=== PATIENT | male | born 1975 | race African-American/Black ===

== ENCOUNTER 2017-04-30 10:15 | Emergency (ER) | payer OTHER ==
[~2017-04-30] VITALS: Ht 175.3 cm; Wt 126.0 kg
[~2017-04-30 10:15] MED LIST: ALPR0.5T99 PO; HYDR12.56 PO; LISI2.5T3 PO; ZOLO25TA PO
[2017-04-30 10:18] VITALS: BP 191/109; PULSE 82; RESP 16; TEMP 98.8; O2SAT 98
[2017-04-30] MEDS ORDERED: HYDR12.57 PO (10:30)
[2017-04-30] MEDS ORDERED: LISI-519 PO (10:30)
[2017-04-30] MEDS ORDERED: ALPR.5 PO (10:30)
--- NOTE | 2017-04-30 10:39 | PD ---
HPI Chief Complaint: GI Complaint Time Seen by Provider: 10:38 Travel History International Travel<30 days: No Contact w/Intl Traveler<30days: No Traveled to known affect area: No History of Present Illness HPI 41 YO M with PMH of HTN presents to the ED for evaluation of 2 day history of left abdominal pain. Onset after moving some boxes. Worsened by deep breaths and certain movements. Patient denies fever, chills, SOB, decreased appetite, nausea, vomiting, changes in bowel habits, melena, hematochezia, dysuria. Endorses chronic back pain, no worse today. Denies history of abdominal surgery. No treatment attempted at home. PFSH Past Medical History Anxiety: Yes Diminished Hearing: No Hypertension: Yes Past Surgical History Surgical History: No Previous Surgery Social History Alcohol Use: Yes (WEEKLY) Tobacco Use: No Substance Use: No Allergies-Medications (Allergen,Severity, Reaction): Coded Allergies: No Known Allergies (Verified , 05/08/15) Reported Meds & Prescriptions Reported Meds & Active Scripts Active Reported Hydrochlorothiazide 12.5 Mg Cap 12.5 Mg PO DAILY Lisinopril 5 Mg Tab 5 Mg PO BID Xanax (Alprazolam) 0.5 Mg Tab 0.5 Mg PO Review of Systems Except as stated in HPI: all other systems reviewed are Neg Physical Exam Narrative GENERAL: Well-nourished, well-developed black male in no acute distress. SKIN: Focused skin assessment warm/dry. Point tenderness over the left lower lateral ribs. No ecchymosis or edema noted. HEAD: Normocephalic. EYES: No scleral icterus. No injection or drainage. NECK: Supple, trachea midline. No JVD or lymphadenopathy. CARDIOVASCULAR: Regular rate and rhythm without murmurs, gallops, or rubs. RESPIRATORY: Breath sounds clear and equal bilaterally. No accessory muscle use. GASTROINTESTINAL: Abdomen soft, non-tender, nondistended. Active bowel sounds. No palpable masses. MUSCULOSKELETAL: No cyanosis, or edema. Ambulatory, moves extremities spontaneously. BACK: Nontender without obvious deformity. No CVA tenderness. Data Data Last Documented VS Vital Signs Date Time Temp Pulse Resp B/P Pulse Ox O2 Delivery O2 Flow Rate FiO2 04/30/17 10:18 98.8 82 16 191/109 98 Orders Complete Blood Count With Diff (04/30/17 10:44) Comprehensive Metabolic Panel (04/30/17 10:44) Ua Includes Microscopic (04/30/17 10:44) Iv Access Insert/Monitor (04/30/17 10:44) Sodium Chloride 0.9% Flush (Ns Flush) (04/30/17 10:45) Chest, Single Ap (04/30/17 10:44) Ketorolac Inj (Toradol Inj) (04/30/17 10:45) Potassium Chloride (Kcl) (04/30/17 12:15) Labs Laboratory Tests Test 04/30/17 04/30/17 11:00 11:05 Urine Color LIGHT-YELLOW Urine Turbidity CLEAR Urine pH 6.5 Urine Specific [place] 1.014 Urine Protein NEG mg/dL Urine Glucose (UA) NEG mg/dL Urine Ketones NEG mg/dL Urine Occult Blood NEG Urine Nitrite NEG Urine Bilirubin NEG Urine Urobilinogen LESS THAN 2.0 MG/DL Urine Leukocyte Esterase NEG Urine RBC LESS THAN 1 /hpf Urine WBC LESS THAN 1 /hpf Urine Mucus FEW /lpf White Blood Count 6.6 TH/MM3 Red Blood Count 4.84 MIL/MM3 Hemoglobin 14.4 GM/DL Hematocrit 41.8 % Mean Corpuscular Volume 86.3 FL Mean Corpuscular Hemoglobin 29.7 PG Mean Corpuscular Hemoglobin 34.4 % Concent Red Cell Distribution Width 13.9 % Platelet Count 241 TH/MM3 Mean Platelet Volume 9.3 FL Neutrophils (%) (Auto) 64.4 % Lymphocytes (%) (Auto) 27.6 % Monocytes (%) (Auto) 5.7 % Eosinophils (%) (Auto) 1.8 % Basophils (%) (Auto) 0.5 % Neutrophils # (Auto) 4.2 TH/MM3 Lymphocytes # (Auto) 1.8 TH/MM3 Monocytes # (Auto) 0.4 TH/MM3 Eosinophils # (Auto) 0.1 TH/MM3 Basophils # (Auto) 0.0 TH/MM3 CBC Comment DIFF FINAL Differential Comment Sodium Level 140 MEQ/L Potassium Level 3.0 MEQ/L Chloride Level 104 MEQ/L Carbon Dioxide Level 27.1 MEQ/L Anion Gap 9 MEQ/L Blood Urea Nitrogen 17 MG/DL Creatinine 1.41 MG/DL Estimat Glomerular Filtration 67 ML/MIN Rate Random Glucose 112 MG/DL Calcium Level 9.0 MG/DL Total Bilirubin 0.4 MG/DL Aspartate Amino Transf 37 U/L (AST/SGOT) Alanine Aminotransferase 39 U/L (ALT/SGPT) Alkaline Phosphatase 81 U/L Total Protein 7.8 GM/DL Albumin 3.9 GM/DL MDM Medical Decision Making Medical Screen Exam Complete: Yes Emergency Medical Condition: Yes Differential Diagnosis Musculoskeletal pain versus rib pain versus rib contusion versus muscle spasm versus less likely splenic injury versus less likely diverticulitis versus other Narrative Course 41 YO M with PMH of HTN presents to the ED for evaluation of 2 day history of left abdominal pain. Onset after moving some boxes. Worsened by deep breaths and certain movements. Patient denies fever, chills, SOB, decreased appetite, nausea, vomiting, changes in bowel habits, melena, hematochezia, dysuria. Endorses chronic back pain, no worse today. Denies history of abdominal surgery. No treatment attempted at home. Vitals reviewed. Physical exam reveals reproducible point tenderness on the lateral aspect of the left lower rib cage. Abdominal exam is unremarkable. No CVA tenderness. I suspect this is musculoskeletal pain. However, the patient is requesting lab work because he is worried for splenic injury. He is administered 30 mg of Toradol IV. No anemia on CBC. CMP reveals hypokalemia likely secondary to daily HCTZ. 40 mg KCl replaced by mouth. No evidence of rib fracture on x-ray. Patient was prescribed a short course of anti-inflammatories. He is instructed to return to normal, gentle activity as tolerated, take the medication as prescribed, apply cold compresses as needed, follow up with the primary care provider. We discussed reasons to return to the ED. The patient indicated understanding of instructions and is agreeable to the care plan. He is stable and discharged home. Diagnosis Primary Impression: Rib pain on left side Additional Impression: Hypokalemia due to loss of potassium Referrals: Primary Care Physician Patient Instructions: General Instructions, Musculoskeletal Pain (ED) Additional Instructions: Rest, hydrate. Return to normal, gentle activity as tolerated. Take ibuprofen 3 times a day as prescribed to reduce pain and inflammation. Cold compresses applied to the area a few times a day 10-15 minutes at a time may also help to reduce your pain symptoms. Follow-up with the primary care provider. Return to the ED for worsening of symptoms or any urgent or emergent medical condition. Med/Other Pt SpecificInfo: Prescription(s) given Disposition: 01 DISCHARGE HOME Condition: Stable Anette Marcum Apr 30, 2017 10:39
[2017-04-30] MEDS ORDERED: SODIUM CHLORIDE 0.9% FLUSH 10 ML FLUSH IV FLUSH PRN (10:45)
[2017-04-30] MEDS ORDERED: KETOROLAC TROMETHAMINE 30 MG/ML (IVP) VIAL IVP ONE (10:45)
--- NOTE | 2017-04-30 11:06 | RADRPT ---
EXAM DATE/TIME: 04/30/2017 10:46 [facility] COMPARISON: CHEST SINGLE AP, May 07, 2015, 23:33. INDICATIONS : Left side chest pain. MEDICAL HISTORY : None. SURGICAL HISTORY : None. ENCOUNTER: Initial ACUITY: 1 day PAIN SCORE: 7/10 LOCATION: Left lower chest FINDINGS: A single view of the chest demonstrates the lungs to be symmetrically aerated without evidence of mas s, infiltrate or effusion. The cardiomediastinal contours are unremarkable. Osseous structures are intact. CONCLUSION: 1. No acute cardiopulmonary disease. Bret Tena MD on April 30, 2017 at 11:03 Board Certified Radiologist. This report was verified electronically.
[2017-04-30 11:29] LABS: AUTOMATED NEUTROPHIL # 4.2 TH/MM3 (1.8-7.7); BASOPHIL % 0.5 % (0.0-2.0); EOSINOPHIL # 0.1 TH/MM3 (0-0.4); EOSINOPHIL % 1.8 % (0.0-4.0); HEMATOCRIT 41.8 % (39.0-51.0); HEMO FLAGS DIFF FINAL; LYMPH % 27.6 % (9.0-44.0); LYMPHOCYTE # 1.8 TH/MM3 (1.0-4.8); MEAN CELL VOLUME 86.3 FL (80.0-100.0); MEAN CORPUSCULAR HEMOGLOBIN 29.7 PG (27.0-34.0); MEAN CORPUSCULAR HGB CONC 34.4 % (32.0-36.0); MONO % 5.7 % (0.0-8.0); NEUT % 64.4 % (16.0-70.0); PLATELET COUNT 241 TH/MM3 (150-450); RED BLOOD COUNT 4.84 MIL/MM3 (4.50-5.90); RED CELL DISTRIBUTION WIDTH 13.9 % (11.6-17.2); WHITE BLOOD COUNT 6.6 TH/MM3 (4.0-11.0)
[2017-04-30 11:36] LABS: BLOOD, URINE NEG (NEG); GLUCOSE,URINE NEG (NEG); KETONE, URINE NEG (NEG); MUCUS URINE FEW /lpf (OCC); NITRITE,URINE NEG (NEG); PH, URINE 6.5 (5.0-8.5); URINE COLOR LIGHT-YELLOW (YELLW/STRAW)
[2017-04-30 11:58] LABS: ALKALINE PHOSPHATASE 81 U/L (45-117); ALT (GPT) 39 U/L (12-78); ANION GAP 9 MEQ/L (5-15); AST (GOT) 37 U/L (15-37); BICARBONATE 27.1 MEQ/L (21.0-32.0); CHLORIDE 104 MEQ/L (98-107); GLOMERULAR FILTRATION RATE 67 ML/MIN (>89); SODIUM (NA) 140 MEQ/L (136-145); TOTAL BILIRUBIN ADULT 0.4 MG/DL (0.2-1.0)
[2017-04-30 12:03] LABS: BLOOD UREA NITROGEN 17 MG/DL (7-18)
[2017-04-30] MEDS ORDERED: POTASSIUM CHLORIDE 20 MEQ CONTROLLED RELEASE TAB PO ONE (12:15)
== END 2017-04-30 12:35 | disposition home or self-care (01) ==
LOC: NEPD 10:15
DX: R07.81 Pleurodynia (principal); E87.6 Hypokalemia; I10 Essential (primary) hypertension; Z86.59 Personal history of other mental and behavioral disorders
CPT/HCPCS: 71010; 80053; 81001; 85025; 96374; 99284; J1885